=== PATIENT | male | born 1990 | race Two or more races ===

== ENCOUNTER 2025-03-11 13:12 | Emergency (ER) | payer MEDICAID, SELFPAY ==
[2025-03-11 13:39] VITALS: BP 131/80; PULSE 61; RESP 18; TEMP 36.7; O2SAT 98
--- NOTE | 2025-03-11 14:05 | PD.EDSKIN ---
ED Skin Abcess FB-RME/HPI General Chief complaint: Skin/Abscess/Foreign Body Stated complaint: GENERALIZED RASH Time Seen by Provider: 03/11/25 13:37 Arrival date/time: 03/11/25 13:12 This is a 34 year old male with complaints of generilized rash. Pt denies any other symptoms and denies chest pain or diff breathing. Pt denies any new contacts Related Data Previous Rx's ?Medication ?Instructions ?Recorded cyclobenzaprine 10 mg tablet 10 mg PO TID PRN muscle spasm #30 09/12/20 tabs ibuprofen 800 mg tablet 800 mg PO TID PRN pain #30 tabs 09/12/20 ibuprofen 800 mg tablet (IBU) 800 mg PO Q8H #20 tabs 02/05/23 tramadol 50 mg tablet 50 mg PO BID #14 tabs 02/05/23 famotidine 20 mg tablet 20 mg PO QDAY #14 tabs 03/11/25 hydroxyzine HCl 25 mg tablet 25 mg PO TID PRN itching #20 tabs 03/11/25 Allergies Allergy/AdvReac Type Severity Reaction Status Date / Time No Known Allergies Allergy Verified 03/11/25 13:14 Review of Systems Review of Systems Systems Reviewed: All systems reviewed, normal except as documented Past Medical History Past Medical History CARDIAC: Negative Congestive Heart Failure RESPIRATORY: Negative Chronic Obstructive Pulmonary Disease (COPD) GENITOURINARY: Negative Renal Disease ENDOCRINE: Negative Diabetes Mellitus Type 1 or Diabetes Mellitus Type 2 Social History SMOKING STATUS: Never smoker ED Exam Narrative Physical exam: VITAL SIGNS: Reviewed. GENERAL APPEARANCE: Alert and interactive, follows commands, no acute distress, HEAD AND FACE: Non-traumatic. ENT: PERRL, conjuctiva pink and clear, eyelid no trauma, Mucous membrane moist. NECK: Supple, nontender, no nuchal rigidity. CHEST: No tenderness, no crepitus, no paradoxical movement, no retractions. LUNGS: Clear, well ventilated, symmetric, no rales, no wheezing, no rhonchi, no stridor, good breath sounds bilaterally. HEART: Regular rate, regular rhythm, no murmur, no gallops. ABDOMEN: Soft, nondistended NEUROLOGICAL: Gross motor function intact sensory function intact, Appropriate for age. MUSCULOSKELETAL: low back nontender, full range of motion. EXTREMITIES: No redness no swelling no skin breakdown on bilateral foot and leg. Distal neurovascular status intact bilateral foot SKIN: Color pink, dry, generlized rash throughout body, raised erythemic hives Course Quality Measures none Orders Category Date Time Status DiphenhydrAMINE [Benadryl] Med 03/11/25 14:07 Discontinued 50 mg PO X1 ONE Famotidine [Pepcid] Med 03/11/25 14:07 Discontinued 40 mg PO X1 ONE predniSONE Med 03/11/25 14:07 Discontinued 40 mg PO X1 ONE Vital Signs Vital signs: Vital Signs Temperature 98.1 F 03/11/25 13:39 Pulse Rate 61 03/11/25 13:39 Respiratory Rate 18 03/11/25 13:39 Blood Pressure 131/80 H 03/11/25 13:39 Pulse Oximetry (%) 98 03/11/25 13:39 Oxygen Delivery Method Room Air 03/11/25 13:39 Skin / Abscess / Foreign Body MDM Narrative MDM Narrative:: Will tx with benadryl, pepcid and prednisone. Pt feels better. I explained to patient she may need to be sent to [facility]. pt verbalizes understanding. pt told to come back to ed if symptoms change or worsen and to follow up with pmd in 1-2 days. Patient data External records reviewed:: [facility] previous records Clinical information provided by:: patient Social determinants that could affect healthcare access:: none Patient has the following chronic illnesses:: none How is presenting disease/condition affected by chronic disease/condition?: no chronic disease Evaluation data The following diagnostics were reviewed and interpreted by me:: other (specify) (none ) Lab and/or radiology exams considered but not ordered:: see note Interpretation Summary: see note Medications / Prescriptions Medications or Prescriptions considered but not ordered:: none Medication administrations:: Medication Administration History Discontinued Medications Diphenhydramine HCl (Diphenhydramine 25 Mg Capsule) 50 mg PO X1 ONE Stop: 03/11/25 14:08 Last Admin: 03/11/25 14:37 Dose: 50 mg Documented By: GUALBERTO Famotidine (Famotidine 20 Mg Tablet) 40 mg PO X1 ONE Stop: 03/11/25 14:08 Last Admin: 03/11/25 14:38 Dose: 40 mg Documented By: GUALBERTO Prednisone (Prednisone 20 Mg Tablet) 40 mg PO X1 ONE Stop: 03/11/25 14:08 Last Admin: 03/11/25 14:37 Dose: 40 mg Documented By: GUALBERTO see mar Consultations Consultation(s) initiated? (list below): No Diagnosis Skin/Abscess Differential Diagnosis: abscess of skin or subcutaneous tissue, viral exanthem, urticaria, cellulitis, eczema and contact dermatitis Most likely diagnosis given after review of the tests above:: see note Admission Indicated Admission indicated?: not indicated Admission Request Was there a request for admission?: No Disposition Plan Disposition Plan: Discharge Discharge Attestation Discharge Attestation: The patient and all family members were given an opportunity to ask questions and understood the discharge instructions. Discharge instructions specifically effects, indications for sooner follow up or return to the emergency department, and the expected course of current diagnosis. Patient condition: Stable Discharge Plan Plan Patient Disposition: HOME (Self Care) Patient condition on transfer: Stable Prescriptions/Referrals Prescriptions/Med Rec: New hydroxyzine HCl 25 mg tablet 25 mg PO TID PRN (Reason: itching) Qty: 20 0RF famotidine 20 mg tablet 20 mg PO QDAY Qty: 14 0RF No Action cyclobenzaprine 10 mg tablet 10 mg PO TID PRN (Reason: muscle spasm) Qty: 30 0RF ibuprofen 800 mg tablet 800 mg PO TID PRN (Reason: pain) Qty: 30 0RF tramadol 50 mg tablet 50 mg PO BID Qty: 14 0RF ibuprofen [IBU] 800 mg tablet 800 mg PO Q8H Qty: 20 0RF Problem List Clinical Impression: Rash, Hx of scabies Patient/Caregiver Discharge Instructions Discharge Activity: activity as tolerated Education Materials: ED General Allergic Reactions Additional Instructions: Mark un divya con gomez medico de cabecera en las proximas 24-48 horas. Regrese a la jovany de emergencias si hay evidencia de que los signos o sintomas empeoran. Print Language: Moroccan Stand Alone Forms: Tianna Award Info., Patient Portal Info Letter PA/ELVA Supervising Physician YUMIKO Supervising Physician: diana
[2025-03-11] MEDS: FAMOTIDINE 20 MG TABLET 40 MG PO (14:38)
== END 2025-03-11 14:43 | disposition home or self-care (01) ==
LOC: SERX 14:50
PROVIDERS: Emergency Provider Emergency Medicine
DX: R21 Rash and other nonspecific skin eruption (principal)
CPT/HCPCS: 99281; J7512; A9270